=== PATIENT | female | born 1965 | race Two or more races ===

== ENCOUNTER 2016-12-23 20:55 | Emergency (ER) | payer MEDICAID ==
--- NOTE | 2016-12-23 21:04 | ED Physician Chart ---
Chief Complaint/HPI - Patient Information Date Seen:: 12/23/16 Time Seen:: 21:00 Chief Complaint:: shoulder pain History of Present Illness:: 50-year-old female complains of acute, constant, worse with movement, aching and sharp, moderate to severe, 9 out of 10 at worst, left shoulder pain, that slightly radiates down the left upper arm, since this morning after she woke up. Denies any injury, numbness or tingling to the distal, upper left extremity. Historian:: Patient Review:: Nurse's Note Reviewed Review of Systems - Review of Systems Other: Complete system review otherwise unremarkable except as noted in HPI. Past Medical History - Past Medical History Past Medical History: No significant medical hx Family History: None Social History: Non Smoker, No Alcohol, No Drug Use Surgical History: None Psychiatricy History: None Medication: None Family Medical History - Family Member Mother History Unknown: Yes Physical Exam - Physical Examination Other:: INITIAL VITAL SIGNS: Reviewed by me GENERAL: Alert and interactive. No acute distress HEAD: Head is normocephalic and atraumatic EYES: EOMI. . No scleral icterus. No conjunctival injection ENT: Moist mucous membranes. NECK: Supple. No masses. Full range of motion RESPIRATORY: No tachypnea. Clear breath sounds bilaterally. No wheezing, rales, or rhonchi CV: Regular rate and rhythm. No murmurs, rubs, or gallops ABDOMEN: Soft, non-distended, non-tender. No guarding. No rebound. No masses. EXTREMITIES: No deformity. No cyanosis. No edema. Left upper extremity at has limited range of motion with abduction reduced due to pain. Left upper extremity has good neurovascular exam. SKIN: Warm and dry. No obvious rashes. NEUROLOGIC: Alert and oriented. Face is symmetric. Speech is normal. Moves all extremities equally. Motor and sensory distally intact. Labs/Radiology/EKG Results - Radiology Results Results: X-ray left shoulder 3 views was interpreted independently and contemporaneously by Elliott Cook MD: No acute fractures No acute dislocations No soft tissue foreign bodies Overall impression: Normal X-ray Assessment Splint Care: Splint applied Post Procedure/Splint Exam: No Active Bleeding, Full Range of Motion, Neuro/ Vascular Exam Comments:: Shoulder sling placed on the left shoulder Splint Assessment: Neurovascularly intact post splint placement with good fit. ED Septic Shock - . Is Septic Shock (SBP<90, OR Lactate>4 mmol\L) present?: No Reassessment (Disposition) - Reassessment Reassessment:: The patient's blood pressure was elevated (>120/80) but appears stable without evidence of hypertensive emergency or urgency. The patient was counseled about the risks hypertension urged to pursue outpatient monitoring and therapy within a week with her primary care physician. Patient has what appears to be left shoulder bursitis. There is no acute injury. X-rays unremarkable. Gave Decadron, Toradol IM. Also gave Benton by mouth. Patient had improved symptoms. Also placed a shoulder sling. Recommended follow-up with PCP in one to 2 days. Gave return to ER precautions. Patient understands and agrees with the plan. Reassessment Condition:: Improved - Diagnosis Diagnosis:: Left shoulder bursitis, acute Elevated blood pressure without the diagnosis of hypertension - Aftercare/Follow up Instructions Aftercare/Follow-Up Instructions:: Counseled pt regarding lab results/diagnosis & need follow up, Refer to Discharge Instructions Medication Prescribed:: Benton Ibuprofen - Patient Disposition Discharge/Transfer:: Home Time:: 21:48 Condition at Disposition:: Improved ED Discharge Plan - Patient Disposition Admit/Discharge/Transfer: PT DISCHARGED HOME Condition at Disposition: Improved Instructions: Impingement Syndrome, Rotator Cuff, Bursitis with Rehab-SportsMed
[2016-12-23] MEDS ORDERED: Hydrocodone/APAP 5mg/325mg Tab PO ONE (21:19)
[2016-12-23] MEDS ORDERED: Dexamethasone Sodium Phos 4 mg/mL Vial IM STA (21:19)
[2016-12-23] MEDS ORDERED: Hydrocodone/APAP 5mg/325mg Tab ONE (21:36)
[2016-12-23] MEDS ORDERED: Dexamethasone Sodium Phos 10 mg/mL PF Vial ONE (21:36)
--- NOTE | 2016-12-24 10:10 | Diagnostic Imaging Report ---
Left shoulder 2 views Indication: pain Comparison: none Findings: Mild glenohumeral and moderate to advanced AC joint degenerative changes are noted. No evidence of an acute fracture or dislocation. No significant focal soft tissue swelling. Impression: No evidence of an acute fracture. Degenerative changes greatest at the AC joint with moderate to advanced degenerative changes in this region. In the setting of trauma, if clinical symptoms persist and there is continued concern for an occult fracture, follow up exams in 5-7 days is suggested.
== END 2016-12-23 22:35 | disposition home or self-care (01) ==
LOC: ER 20:55
DX: M75.52 Bursitis of left shoulder (principal); R03.0 Elevated blood-pressure reading, without diagnosis of hypertension
CPT/HCPCS: 99284; 96372 ×2; 29105; 73030; J1885; Z7502